=== PATIENT | male | born 1935 | race African-American/Black ===

== ENCOUNTER 2021-10-01 17:09 | Inpatient (IN) | payer MEDICARE, MEDICAID ==
[~2021-10-01] VITALS: Ht 162.6 cm; Wt 64.4 kg
[2021-10-01 18:07] LABS: EOSINOPHILS % 3.4 % (0.0-5.0); HEMATOCRIT. 44.7 % (42.0-52.0); HEMOGLOBIN. 14.5 g/dL (14.0-18.0); LYMPHOCYTES % 38.5 % (20.0-50.0); MEAN CORPUSCULAR HEMOGLOBIN 30.3 pg (28.0-32.0); MEAN CORPUSCULAR VOLUME 93.7 fL (80.0-94.0); MEAN PLATELET VOLUME 8.6 fl (7.4-10.4); NEUTROPHILS % 50.1 % (40.0-76.0); PLATELET 186 x1000/uL (130-400); RED BLOOD CELL COUNT 4.77 mill/uL (4.7-6.1); RED CELL DISTRIBUTION WIDTH 15.7 % (11.6-14.6)
[2021-10-01 18:09] LABS: CHLORIDE 108 mEq/L (98-107)
[2021-10-01] MEDS ORDERED: MORPHINE SULFATE 2 MG/ML CPJ (NOT FOR IM USE) IV ONE (18:15)
[2021-10-01] MEDS ORDERED: ASPIRIN 81MG TABLET PO ONE (18:15)
[2021-10-01] MEDS ORDERED: FUROSEMIDE 20MG TABLET PO ONE (18:45)
[2021-10-01] MEDS ORDERED: ACETAMINOPHEN 325MG TABLET PO PRN (20:30)
[2021-10-01] MEDS ORDERED: NITROGLYCERIN 0.4MG TABLET SL SL PRN (20:30)
[2021-10-01] MEDS ORDERED: CLONIDINE 0.1MG TABLET PO PRN (20:30)
[2021-10-01] MEDS ORDERED: MAGNESIUM/ALUMINUM HYDROXIDE/SIMETHICONE 30ML UDC PO PRN (20:30)
[2021-10-01] MEDS ORDERED: GUAIFENESIN 200MG/10ML SUGAR FREE UDC PO PRN (20:30)
[2021-10-01] MEDS ORDERED: DOCUSATE SODIUM 100MG CAPSULE PO PRN (20:30)
[2021-10-01] MEDS ORDERED: TRAMADOL 50MG TABLET PO PRN (20:30)
[2021-10-01] MEDS ORDERED: IPRATROPIUM/ALBUTEROL 0.5-3(2.5)MG/3ML NEB NEB PRN (20:30)
[2021-10-01] MEDS ORDERED: METOPROLOL TARTRATE 25MG TABLET PO SCH (20:30)
[2021-10-01] MEDS: METOPROLOL TARTRATE 25MG TABLET PO SCH (20:48)
[2021-10-01] MEDS ORDERED: ENOXAPARIN 40MG/0.4ML SYR SUBCUT SCH (21:00)
[2021-10-01] MEDS: FUROSEMIDE 40MG/4ML VIAL IVP SCH (21:09)
[2021-10-01 21:11] LABS: ETHANOL BLOOD < 10 mg/dL; TOTAL IRON BINDING CAPACITY 279 ug/dL (250-450)
[2021-10-01 21:45] LABS: VITAMIN B12 SERUM 648 pg/mL (211-911)
[2021-10-01 21:51] LABS: FOLIC ACID (FOLATE) SERUM > 20.00 ng/mL (>5.38)
[2021-10-01 22:53] LABS: *AMPHETAMINES SCREEN URINE NEGATIVE (NEGATIVE); *BARBITURATES SCREEN URINE NEGATIVE (NEGATIVE); CANNABINOID URINE SCREEN NEGATIVE (NEGATIVE); METHADONE URINE SCREEN NEGATIVE (NEGATIVE); OPIATES URINE SCREEN PRESUMTIVE POSITIVE (NEGATIVE); PHENCYCLIDINE URINE SCREEN NEGATIVE (NEGATIVE)
[2021-10-01 22:54] LABS: *BENZODIAZEPINES SCREEN URINE NEGATIVE (NEGATIVE); *COCAINE SCREEN URINE NEGATIVE (NEGATIVE)
[2021-10-01] MEDS: FAMOTIDINE 20MG TABLET PO SCH (23:25)
[2021-10-01] MEDS: ASCORBIC ACID 500 MG TABLET PO SCH (23:25)
[2021-10-01] MEDS: SPIRONOLACTONE 25MG TABLET PO SCH (23:25)
[2021-10-01] MEDS: ACETAMINOPHEN 325MG TABLET PO PRN (23:26)
[2021-10-02] VITALS (7 sets, daily range): BP systolic 75–131; BP diastolic 45–99
[2021-10-02 06:31] LABS: BASOPHILS % 0.6 % (0.0-2.0); EOSINOPHILS % 2.2 % (0.0-5.0); HEMATOCRIT. 38.4 % (42.0-52.0); HEMOGLOBIN. 12.6 g/dL (14.0-18.0); LYMPHOCYTES % 26.1 % (20.0-50.0); MEAN CORPUSCULAR HEMOGLOBIN 30.3 pg (28.0-32.0); MEAN CORPUSCULAR VOLUME 92.1 fL (80.0-94.0); MEAN PLATELET VOLUME 8.7 fl (7.4-10.4); MONOCYTES % 8.3 % (2.0-8.0); NEUTROPHILS % 62.8 % (40.0-76.0); PLATELET 170 x1000/uL (130-400); RED BLOOD CELL COUNT 4.16 mill/uL (4.7-6.1); RED CELL DISTRIBUTION WIDTH 15.5 % (11.6-14.6)
[2021-10-02 06:57] LABS: CHLORIDE 107 mEq/L (98-107)
[2021-10-02 07:19] LABS: CREATINE KINASE 68 IU/L (39-308); CREATINE KINASE MB FRACTION 1.8 ng/mL (0.5-3.6); LDL CHOLESTEROL 35 mg/dL (5-100)
[2021-10-02 07:21] LABS: HDL CHOLESTEROL 57 mg/dL (40-59)
[2021-10-02] MEDS: FUROSEMIDE 40MG/4ML VIAL IVP SCH (08:56)
[2021-10-02] MEDS: ZINC SULFATE 220 MG ( 50 ) CAPSULE PO SCH (08:56)
[2021-10-02] MEDS: CHOLECALCIFEROL (D3) 1000 UNIT TABLET PO SCH (08:57)
[2021-10-02] MEDS: SPIRONOLACTONE 25MG TABLET PO SCH ×2 (08:57→20:57)
[2021-10-02] MEDS: ASCORBIC ACID 500 MG TABLET PO SCH ×2 (09:00→20:57)
[2021-10-02] MEDS ORDERED: ASPIRIN 325MG EC TABLET PO SCH (09:00)
[2021-10-02] MEDS ORDERED: NALOXONE HCL 0.4MG/ML VIAL IV PRN (09:30)
[2021-10-02] MEDS: ONDANSETRON HCL 4MG/2ML INJ IV PRN (09:51)
[2021-10-02] MEDS: METOPROLOL TARTRATE 25MG TABLET PO SCH (09:52)
[2021-10-02] MEDS ORDERED: METOPROLOL TARTRATE 50MG TABLET PO NR (13:45)
[2021-10-02] MEDS: ENOXAPARIN 80MG/0.8ML SYR SUBCUT SCH (14:46)
[2021-10-02] MEDS: FUROSEMIDE 20MG/2ML VIAL IVP SCH (19:37)
[2021-10-02] MEDS: METOPROLOL TARTRATE 100MG TABLET PO SCH (20:57)
[2021-10-02] MEDS: FAMOTIDINE 20MG TABLET PO SCH (20:57)
[2021-10-03] VITALS: BP 138/89
[2021-10-03] MEDS: ENOXAPARIN 80MG/0.8ML SYR SUBCUT SCH ×2 (02:00→13:49)
[2021-10-03 04:00] VITALS: BP 142/88
[2021-10-03] MEDS: FUROSEMIDE 20MG/2ML VIAL IVP SCH ×2 (06:13→17:58)
[2021-10-03 07:33] LABS: PROTHROMBIN TIME 11.1 sec (9.6-11.0)
[2021-10-03 08:00] VITALS: BP 146/87
[2021-10-03] MEDS: CHOLECALCIFEROL (D3) 1000 UNIT TABLET PO SCH (08:25)
[2021-10-03] MEDS: METOPROLOL TARTRATE 100MG TABLET PO SCH ×2 (08:26→21:02)
[2021-10-03] MEDS: ZINC SULFATE 220 MG ( 50 ) CAPSULE PO SCH (08:26)
[2021-10-03] MEDS: SPIRONOLACTONE 25MG TABLET PO SCH ×2 (08:26→21:02)
[2021-10-03] MEDS: ASPIRIN 81MG EC TABLET PO SCH (08:26)
[2021-10-03] MEDS: ASCORBIC ACID 500 MG TABLET PO SCH ×2 (08:28→21:01)
[2021-10-03 12:00] VITALS: BP 115/64
[2021-10-03] MEDS: ACETAMINOPHEN 325MG TABLET PO PRN (12:43)
[2021-10-03 20:00] VITALS: BP 115/71
[2021-10-03] MEDS: FAMOTIDINE 20MG TABLET PO SCH (21:02)
[2021-10-03] MEDS: ZOLPIDEM TARTRATE 5MG TABLET PO PRN (23:28)
[2021-10-04] VITALS: BP 139/47
[2021-10-04] MEDS: ENOXAPARIN 80MG/0.8ML SYR SUBCUT SCH (02:00)
[2021-10-04 04:00] VITALS: BP 118/79
[2021-10-04] MEDS: FUROSEMIDE 20MG/2ML VIAL IVP SCH (05:50)
[2021-10-04 08:00] VITALS: BP 136/74
[2021-10-04] MEDS ORDERED: HEPARIN 1000 UNITS/ML 10ML ONE (08:46)
[2021-10-04] MEDS ORDERED: FENTANYL CITRATE/PF 50MCG/ML 2ML VIAL ONE (08:46)
[2021-10-04] MEDS ORDERED: LIDOCAINE HCL 1% 10 MG/ML 10ML VIAL ONE (08:47)
[2021-10-04] MEDS ORDERED: MIDAZOLAM HCL 2 MG/2 ML VIAL ONE (08:47)
[2021-10-04] MEDS ORDERED: VERAPAMIL HCL 2.5 MG/1 ML 2ML VIAL IV ONE (08:47)
[2021-10-04] MEDS ORDERED: IODIXANOL 320MG/ML 100 ML BOTTLE IV ONE ×2 (08:47→13:50)
[2021-10-04] MEDS: METOPROLOL TARTRATE 100MG TABLET PO SCH ×2 (09:00→21:00)
[2021-10-04] MEDS ORDERED: ATROPINE SULFATE 1MG/10ML SYR IV PRN (10:15)
[2021-10-04] MEDS ORDERED: LIDOCAINE HCL 1% 30ML VIAL (10MG/ML) ONE (13:50)
[2021-10-04] MEDS ORDERED: FENTANYL CITRATE/PF 50MCG/ML 5ML VIAL ONE (13:50)
[2021-10-04] MEDS ORDERED: MIDAZOLAM HCL 5 MG/5 ML VIAL ONE (13:50)
[2021-10-04] MEDS: CHOLECALCIFEROL (D3) 1000 UNIT TABLET PO SCH (15:24)
[2021-10-04] MEDS: ASPIRIN 81MG EC TABLET PO SCH (15:24)
[2021-10-04] MEDS: AMIODARONE HCL 200 MG TABLET PO SCH ×2 (15:25→21:00)
[2021-10-04] MEDS: ZINC SULFATE 220 MG ( 50 ) CAPSULE PO SCH (15:25)
[2021-10-04] MEDS: SPIRONOLACTONE 25MG TABLET PO SCH ×2 (15:26→21:02)
[2021-10-04] MEDS: ASCORBIC ACID 500 MG TABLET PO SCH ×2 (15:30→21:00)
[2021-10-04 16:00] VITALS: BP_SYST 101; BP_SYST 148; BP_DIAS 63; BP_DIAS 72
[2021-10-04] MEDS: ACETAMINOPHEN 325MG TABLET PO PRN (17:38)
[2021-10-04 20:00] VITALS: BP 116/62
[2021-10-04] MEDS: FAMOTIDINE 20MG TABLET PO SCH (21:00)
[2021-10-05] VITALS (7 sets, daily range): BP systolic 99–146; BP diastolic 61–87
[2021-10-05 07:03] LABS: BASOPHILS % 0.8 % (0.0-2.0); EOSINOPHILS % 2.9 % (0.0-5.0); HEMATOCRIT. 42.4 % (42.0-52.0); MEAN CORPUSCULAR VOLUME 91.2 fL (80.0-94.0); MEAN PLATELET VOLUME 8.4 fl (7.4-10.4); MONOCYTES % 10.1 % (2.0-8.0); NEUTROPHILS % 49.2 % (40.0-76.0); PLATELET 196 x1000/uL (130-400); RED BLOOD CELL COUNT 4.65 mill/uL (4.7-6.1); RED CELL DISTRIBUTION WIDTH 14.9 % (11.6-14.6)
[2021-10-05 07:08] LABS: CHLORIDE 105 mEq/L (98-107)
[2021-10-05] MEDS ORDERED: AMIODARONE HCL 150 MG in DEXT 5% WATER 100 ML IV NR (09:00)
[2021-10-05] MEDS: CHOLECALCIFEROL (D3) 1000 UNIT TABLET PO SCH (09:19)
[2021-10-05] MEDS: ZINC SULFATE 220 MG ( 50 ) CAPSULE PO SCH (09:19)
[2021-10-05] MEDS: ASCORBIC ACID 500 MG TABLET PO SCH ×2 (09:19→20:55)
[2021-10-05] MEDS: METOPROLOL TARTRATE 100MG TABLET PO SCH ×2 (09:19→20:55)
[2021-10-05] MEDS: SPIRONOLACTONE 25MG TABLET PO SCH ×2 (09:19→20:55)
[2021-10-05] MEDS: AMIODARONE HCL 200 MG TABLET PO SCH (09:19)
[2021-10-05] MEDS: ASPIRIN 81MG EC TABLET PO SCH (09:19)
[2021-10-05] MEDS ORDERED: AMIODARONE HCL 900 MG in DEXT 5% WATER 482 ML IV SCH (15:00)
[2021-10-05] MEDS: FAMOTIDINE 20MG TABLET PO SCH (20:55)
[2021-10-05] MEDS: ZOLPIDEM TARTRATE 5MG TABLET PO PRN (23:21)
[2021-10-06 04:00] VITALS: BP 154/76
[2021-10-06 08:00] VITALS: BP 140/70
[2021-10-06] MEDS: ASCORBIC ACID 500 MG TABLET PO SCH ×2 (09:48→21:06)
[2021-10-06] MEDS: ZINC SULFATE 220 MG ( 50 ) CAPSULE PO SCH (09:49)
[2021-10-06] MEDS: CHOLECALCIFEROL (D3) 1000 UNIT TABLET PO SCH (09:49)
[2021-10-06] MEDS: CARVEDILOL 3.125 MG TABLET PO SCH ×2 (09:49→21:06)
[2021-10-06] MEDS: ASPIRIN 81MG EC TABLET PO SCH (09:49)
[2021-10-06] MEDS: METOPROLOL TARTRATE 100MG TABLET PO SCH ×2 (09:51→21:06)
[2021-10-06] MEDS: SPIRONOLACTONE 25MG TABLET PO SCH ×2 (11:16→21:06)
[2021-10-06 16:00] VITALS: BP 131/62
[2021-10-06 20:00] VITALS: BP 115/86
[2021-10-06] MEDS: FAMOTIDINE 20MG TABLET PO SCH (21:06)
[2021-10-07] VITALS: BP 118/72
[2021-10-07] MEDS ORDERED: ATOR40TA70 MT (02:42)
[2021-10-07] MEDS ORDERED: INSU100I24 SQ (02:42)
[2021-10-07] MEDS ORDERED: METO100T16 MT (02:42)
[2021-10-07] MEDS ORDERED: NITR0.4T49 SL (02:42)
[2021-10-07] MEDS ORDERED: METF-414 MT (02:42)
[2021-10-07] MEDS ORDERED: LIRA0.6P2 SQ (02:42)
[2021-10-07] MEDS ORDERED: ISOS30TA91 MT (02:42)
[2021-10-07] MEDS ORDERED: GABA-533 MT (02:42)
[2021-10-07] MEDS ORDERED: TICA90TA MT (02:42)
[2021-10-07] MEDS ORDERED: NIFE-32 MT (02:42)
[2021-10-07] MEDS ORDERED: METH-774 MT (02:42)
[2021-10-07] MEDS ORDERED: POTA-79 MT (02:42)
[2021-10-07] MEDS ORDERED: PANT40TA51 MT (02:42)
[2021-10-07] MEDS ORDERED: ASPI-1497 MT (02:42)
[2021-10-07] MEDS ORDERED: LOSA100T32 MT (02:42)
[2021-10-07 04:30] VITALS: BP 148/76
[2021-10-07] MEDS: ASPIRIN 81MG EC TABLET PO SCH (09:41)
[2021-10-07] MEDS: CARVEDILOL 3.125 MG TABLET PO SCH (09:41)
[2021-10-07] MEDS: ZINC SULFATE 220 MG ( 50 ) CAPSULE PO SCH (09:41)
[2021-10-07] MEDS: CHOLECALCIFEROL (D3) 1000 UNIT TABLET PO SCH (09:41)
[2021-10-07] MEDS: ASCORBIC ACID 500 MG TABLET PO SCH ×2 (09:42→21:30)
[2021-10-07] MEDS: SPIRONOLACTONE 25MG TABLET PO SCH ×2 (09:42→21:31)
[2021-10-07] MEDS: METOPROLOL TARTRATE 100MG TABLET PO SCH ×2 (09:42→21:30)
[2021-10-07 12:00] VITALS: BP 141/65
[2021-10-07] MEDS: AMIODARONE HCL 200 MG TABLET PO SCH (14:00)
[2021-10-07 16:17] VITALS: BP 137/70
[2021-10-07 20:00] VITALS: BP 137/68
[2021-10-07] MEDS: CARVEDILOL 6.25 MG TABLET PO SCH (21:30)
[2021-10-07] MEDS: FAMOTIDINE 20MG TABLET PO SCH (21:31)
[2021-10-08] VITALS: BP 136/64
[2021-10-08 04:00] VITALS: BP 138/82
[2021-10-08 08:00] VITALS: BP 98/65
[2021-10-08] MEDS: ASPIRIN 81MG EC TABLET PO SCH (08:49)
[2021-10-08] MEDS: ZINC SULFATE 220 MG ( 50 ) CAPSULE PO SCH (08:49)
[2021-10-08] MEDS: CHOLECALCIFEROL (D3) 1000 UNIT TABLET PO SCH (08:49)
[2021-10-08] MEDS: SPIRONOLACTONE 25MG TABLET PO SCH (09:00)
[2021-10-08] MEDS: AMIODARONE HCL 200 MG TABLET PO SCH (09:00)
[2021-10-08] MEDS: CARVEDILOL 6.25 MG TABLET PO SCH (09:00)
[2021-10-08] MEDS: METOPROLOL TARTRATE 100MG TABLET PO SCH (09:05)
[2021-10-08] MEDS: ASCORBIC ACID 500 MG TABLET PO SCH (09:06)
[2021-10-08] MEDS: ONDANSETRON HCL 4MG/2ML INJ IV PRN (09:17)
[2021-10-08 12:15] VITALS: BP 128/74
[2021-10-08 12:50] VITALS: BP 128/74
[2021-10-08] MEDS ORDERED: METOPROLOL TARTRATE 25MG TABLET PO SCH (21:00)
== END 2021-10-08 16:05 | disposition home health service (06) | DRG 191 ==
LOC: ER 17:09 → 7WST 19:40 → EDBEDREQTM 19:55 → EDBEDREQSVC 19:55 → EDBEDREQ 19:55 → CANRESERV 20:22 → ENRESERV 20:22 → SUPCPDRO 20:29 → EDBEDREQSVC 20:40 → EDBEDREQTM 20:40 → ENRESERV 21:19 → 6WST 10-03 10:45
PROVIDERS: ADMIT Internal Medicine; ATTEND Internal Medicine
PROC: B211YZZ Fluoroscopy of Multiple Coronary Arteries using Other Contrast (ICD-10-PCS; principal; 2021-10-04)
PROC: 4A023N7 Measurement of Cardiac Sampling and Pressure, Left Heart, Percutaneous Approach (ICD-10-PCS; 2021-10-04)
PROC: B54MZZA Ultrasonography of Right Upper Extremity Veins, Guidance (ICD-10-PCS; 2021-10-04)
DX: I25.110 Atherosclerotic heart disease of native coronary artery with unstable angina pectoris (principal); I50.33 Acute on chronic diastolic (congestive) heart failure; I47.2 Ventricular tachycardia; I48.92 Unspecified atrial flutter; I11.0 Hypertensive heart disease with heart failure; I48.0 Paroxysmal atrial fibrillation; D64.9 Anemia, unspecified; E78.5 Hyperlipidemia, unspecified; Z20.822 Contact with and (suspected) exposure to COVID-19; I49.3 Ventricular premature depolarization; J44.9 Chronic obstructive pulmonary disease, unspecified; I36.1 Nonrheumatic tricuspid (valve) insufficiency; Z79.82 Long term (current) use of aspirin; Z95.5 Presence of coronary angioplasty implant and graft
CPT/HCPCS: 36415; 71045; 80048; 80053; 80061; 80305; 80320; 82550; 82553; 82607; 82746; 83036; 83540; 83550; 83735; 83880; 84100; 84439; 84443; 84484; 85025; 87426; 93005; 93306; 93458; 93970; 97162; 97166; 99291; C1769; C1887; C1893; J0282; J1644; J1650; J1940; J2250; J2270; J2405; J3010; J3490; J7060; Q9967; G0480

== ENCOUNTER → 2022-04-19 | Outpatient (CLI) | payer MEDICARE, MEDICAID ==
[~2022-04-19] MED LIST: ASPI-1497 MT; ATOR40TA70 MT; GABA-533 MT; INSU100I24 SQ; ISOS30TA91 MT; LIRA0.6P2 SQ; LOSA100T32 MT; METF-414 MT; METH-774 MT; METO100T16 MT; NIFE-32 MT; NITR0.4T49 SL; PANT40TA51 MT; POTA-79 MT; TICA90TA MT
== END | disposition home or self-care (01) ==
LOC: RAD 10:25
PROVIDERS: ATTEND Internal Medicine Clinical Cardiac Electrophysiology
DX: J98.11 Atelectasis (principal); I47.2 Ventricular tachycardia; I49.3 Ventricular premature depolarization; I25.118 Atherosclerotic heart disease of native coronary artery with other forms of angina pectoris
CPT/HCPCS: 71046